=== PATIENT | female | born 2000 | race Two or more races ===

== ENCOUNTER 2022-06-25 14:45 | Emergency (ER) | payer BC ==
[~2022-06-25] VITALS: Ht 162.6 cm; Wt 45.8 kg
--- NOTE | 2022-06-25 15:51 | NUR ---
TECH AT BEDSIDE FOR ULTRASOUND
--- NOTE | 2022-06-25 17:18 | NUR ---
Patient discharged to home in stable condition. Written and verbal after care instructions given. Patient verbalizes understanding of instruction.
[2022-06-25 17:19] VITALS: BP 124/60
== END 2022-06-25 17:20 | disposition home or self-care (01) ==
LOC: ER 14:57
DX: O26.891 Other specified pregnancy related conditions, first trimester (principal); R10.30 Lower abdominal pain, unspecified; Z3A.13 13 weeks gestation of pregnancy
CPT/HCPCS: 76805-TC